=== PATIENT | female | born 1950 | race Two or more races ===

== ENCOUNTER 2018-06-14 12:00 | Inpatient (IN) | payer OTHER ==
[~2018-06-14] VITALS: Ht 142.2 cm; Wt 73.5 kg
[2018-06-14] MEDS ORDERED: LEVO-T50 MCG PO (14:48)
[2018-06-14] MEDS ORDERED: NORVASC5 MG PO (14:48)
[2018-06-14] MEDS ORDERED: EVISTA60 MG PO (14:49)
[2018-06-14] MEDS ORDERED: COZAAR100 MG PO (14:49)
[2018-06-14] MEDS ORDERED: FAMOTIDINE40 MG PO (14:50)
[2018-06-14] MEDS ORDERED: NEURONTIN300 MG PO (14:50)
[2018-06-21] MEDS ORDERED: GABAPENTIN800 MG PO (08:14)
[2018-06-21] MEDS ORDERED: DOCUSATE SODIU100 MG PO (08:14)
[2018-06-21] MEDS ORDERED: BACTRIM DS TAB1 EACH PO (08:16)
[2018-06-21] MEDS ORDERED: FLAGYL500MG PO (08:17)
[2018-06-21] MEDS ORDERED: PERCOCET 5-3251 EACH PO (08:17)
[2018-06-21] MEDS ORDERED: CLONAZEPAM0.5 M1 PO (08:17)
== END 2018-06-21 20:03 | DRG 455 ==
LOC: EDSTATUS 12:00 → SURH 12:00 → ADM 12:00 → SURH 06-20 05:00 → O/R 06-20 05:00 → EDBD 06-20 05:00 → SURH 06-20 12:00
PROVIDERS: ADMIT Orthopaedic Surgery Orthopaedic Surgery of the Spine
PROC: 0SG0071 Fusion of Lumbar Vertebral Joint with Autologous Tissue Substitute, Posterior Approach, Posterior Column, Open Approach (ICD-10-PCS; 2018-06-20)
PROC: 0SG00AJ Fusion of Lumbar Vertebral Joint with Interbody Fusion Device, Posterior Approach, Anterior Column, Open Approach (ICD-10-PCS; 2018-06-20)
PROC: 0ST20ZZ Resection of Lumbar Vertebral Disc, Open Approach (ICD-10-PCS; 2018-06-20)
PROC: 07DS3ZZ Extraction of Vertebral Bone Marrow, Percutaneous Approach (ICD-10-PCS; 2018-06-20)
PROC: 0SG00A0 Fusion of Lumbar Vertebral Joint with Interbody Fusion Device, Anterior Approach, Anterior Column, Open Approach (ICD-10-PCS; principal; 2018-06-20 14:00)
DX: M47.26 Other spondylosis with radiculopathy, lumbar region (principal); M48.062 Spinal stenosis, lumbar region with neurogenic claudication; M51.16 Intervertebral disc disorders with radiculopathy, lumbar region; I10 Essential (primary) hypertension; E03.8 Other specified hypothyroidism